=== PATIENT | male | born 1985 | race Caucasian/White ===

== ENCOUNTER 2023-11-23 02:42 | Emergency (ER) | payer MEDICAID ==
[~2023-11-23] VITALS: Ht 175.3 cm; Wt 67.6 kg
[2023-11-23 02:46] VITALS: BP_SYST 125; PULSE 59; RESP 18; TEMP 98.1; O2SAT 98
[2023-11-23] MEDS: levETIRAcetam 500 MG TABLET PO ONE (02:54)
== END 2023-11-23 03:00 ==
LOC: SED 02:42
DX: R56.9 Unspecified convulsions (principal); Z87.19 Personal history of other diseases of the digestive system
CPT/HCPCS: 99283